=== PATIENT | male | born 1990 | race Caucasian/White ===

== ENCOUNTER → 2019-04-02 08:59 | Outpatient (CLI) | payer BC, SELFPAY ==
--- NOTE | 2019-04-01 15:00 | LIP_PTH ---
PATIENT: ELLE SALAZAR LOC: [facility] U#:[id number] AGE/SX: 35/M ROOM: RE04/02/[address]: Dr. Ananth Gay MD : 1990 BED: DIS: SPEC #: [id number] RECD: 04/02/19 08:05 STATUS: RAMO CLOTILDE #: [id number] BRIT: 04/01/19 15:[address]: Ananth Gay DEPT: SURGICAL PATHOLOGY RECD BY: Boris Madsen ENTERED: 04/02/19 09:28 SP TYPE: LIPOMA OTHR DR: Dr. Ananth Lundberg MD Tissues: A - Soft tissues, NOS B - Soft tissues, NOS C - Soft tissues, NOS Procedures: Surgery Specimen Level III HEADER OPERATION: Excision multiple lipomas PRE-OP DIAGNOSIS: Lipomas of trunk TISSUE SUBMITTED: A - Right lower back, B - Left mid back, C - Chest MICROSCOPIC DIAGNOSIS A. Soft tissue lesion, right lower back, excision: Mature adipose tissue consistent with angiolipoma. B. Soft tissue lesion, left mid back, excision: Mature adipose tissue consistent with angiolipoma. C. Soft tissue lesion, chest, excision: Mature adipose tissue consistent with lipoma. AM:fabi 04/03/19 MICROSCOPIC DESCRIPTION Slides are reviewed. GROSS DESCRIPTION A - Received in fixative is one container labeled with the patient's name and designated right lower back. The specimen consists of a lobulated fragment of yellow fatty tissue measuring 2 x 1.6 x 1 cm. Sections reveal homogenous yellow cut surfaces without areas of cyst formation, necrosis or myxoid change. [employer] sections are submitted in one cassette. B - Received in fixative is one container labeled with the patient's name and designated left mid back. The specimen consists of two lobulated fragments of yellow fatty tissue measuring 3 x 1.5 x 1 cm. Sections reveal homogenous yellow cut surfaces without areas of cyst formation, necrosis or myxoid change. The specimen is bisected and totally submitted in one cassette. C - Received in fixative is one container labeled with the patient's name and designated chest. The specimen consists of a lobulated fragment of yellow fatty tissue measuring 1.7 x 1.5 x 0.8 cm. Sections reveal homogenous yellow cut surfaces without areas of cyst formation, necrosis or myxoid change. The specimen is bisected and totally submitted in one cassette. / AM:fabi 04/02/19 TC:1 CPT: 00055 x3
[2019-04-01 15:01] VITALS: BMI 25.4
== END ==
PROVIDERS: Family Provider Family Medicine; PCP Family Medicine; Referring Provider Surgery; Visit Provider Surgery
DX: L98.9 Disorder of the skin and subcutaneous tissue, unspecified (principal)
CPT/HCPCS: 88304

== ENCOUNTER → 2021-04-14 | Outpatient (CLI) | payer BC, SELFPAY ==
--- NOTE | 2021-04-14 13:00 | LES_PTH ---
PATIENT: ELLE SALAZAR LOC: [facility]#:[id number] AGE/SX: 31/M ROOM: RE04/14/[address]: Dr. Ananth Gay MD : 1990 BED: DIS: 04/14/2021 SPEC #: [id number] RECD: 04/14/21 15:53 STATUS: RAMO REJuli #: [id number] BRIT: 04/14/21 13:[address]: Ananth Gay DEPT: SURGICAL PATHOLOGY RECD BY: Mar Herring ENTERED: 04/17/21 09:10 SP TYPE: Lesion OTHR DR: No Primary Care Phys Tissues: Skin of arm Procedures: Surgery Specimen Level III HEADER OPERATION: Excision right posterior arm lipoma PRE-OP DIAGNOSIS: Lipoma of arm TISSUE SUBMITTED: Right arm tissue MICROSCOPIC DIAGNOSIS Right posterior arm lesion, excisional biopsy: Angiolipoma. CHANDRAKANT:fabi 04/18/2021 MICROSCOPIC DESCRIPTION Slides are reviewed. GROSS DESCRIPTION Received in fixative is one container labeled with the patient's name and designated right posterior arm. The specimen consists of multiple pieces of greene-yellow adipose tissue that in aggregate measure 1.5 x 1.5 x 0.3 cm. The largest piece is bisected. The entire specimen is submitted in one cassette. / SJ:rg 04/17/21 TC:1 CPT: 60428
== END | disposition home or self-care (01) ==
PROVIDERS: Referring Provider Surgery; Visit Provider Surgery
DX: D17.21 Benign lipomatous neoplasm of skin and subcutaneous tissue of right arm (principal)
CPT/HCPCS: 88304; 88305